=== PATIENT | male | born 1960 | race Two or more races ===

== ENCOUNTER → 2025-09-25 10:47 | Outpatient (BNV) | payer MEDICARE, SELFPAY | PROVIDERS: Visit Provider Internal Medicine | DX: C90.00 Multiple myeloma not having achieved remission (principal); D64.9 Anemia, unspecified; D69.59 Other secondary thrombocytopenia; M89.9 Disorder of bone, unspecified | CPT/HCPCS: 99204; G2211 ==

== ENCOUNTER 2025-10-12 11:56 | Outpatient (REF) | payer MEDICARE, SELFPAY ==
--- NOTE | ~2025-10-12 | XR_ITS ---
EXAMINATION: XR CHEST CLINICAL INFORMATION: left clavicle mass COMPARISON: None available. TECHNIQUE: PA and lateral views. FINDINGS: Pulmonary reticular pattern. No gross consolidation, pleural fissure pneumothorax. Cardiomediastinal silhouette size is normal. Multilevel spondylosis and a shaped curvature of the thoracic spine. Degenerative changes in the shoulders. XR/XR chest 2V IMPRESSION: Chronic interstitial lung disease. Spondylosis and scoliosis, thoracic spine. Electronically signed by: Amaury Zaragoza MD 10/12/2025 12:20 PM [facility]AM[facility] WORLEY
== END 2025-10-12 11:57 | disposition home or self-care (01) ==
LOC: HO.XRAY 11:56
PROVIDERS: Visit Provider Internal Medicine
DX: C90.00 Multiple myeloma not having achieved remission (principal); R22.32 Localized swelling, mass and lump, left upper limb
CPT/HCPCS: 71046

== ENCOUNTER → 2025-10-12 12:03 | Outpatient (BNV) | payer MEDICARE, MEDICAID, SELFPAY | PROVIDERS: Visit Provider Radiology Diagnostic Radiology | DX: J84.9 Interstitial pulmonary disease, unspecified (principal); M47.814 Spondylosis without myelopathy or radiculopathy, thoracic region; M41.84 Other forms of scoliosis, thoracic region | CPT/HCPCS: 71046 ==

== ENCOUNTER 2025-10-24 13:07 | Outpatient (REF) | payer MEDICARE, SELFPAY ==
--- NOTE | ~2025-10-24 | CT_ITS ---
EXAMINATION: CT CHEST WITH IV CONTRAST INDICATION: Lung mass seen previously COMPARISON: Correlation is made with PA and lateral views of the chest dated 10/12/2025. TECHNIQUE: Helical CT scan of the chest was performed following administration of intravenous contrast. Coronal and sagittal reformatted images were generated and reviewed. This CT exam was performed with one or more of the following dose reduction techniques: automated exposure control, adjustment of the mA and/or kV according to patient size, use of iterative reconstruction technique. DLP: 143 mGy-cm CHEST: THYROID: The thyroid is unremarkable. LUNGS: There is a tiny calcified granuloma in the right middle lobe (series 5, image 90). The lungs are otherwise clear. MEDIASTINUM: There is no mediastinal lymphadenopathy. MAHSA: There is no hilar lymphadenopathy. CARDIOVASCULATURE: The heart is mildly enlarged. There is no pericardial effusion. The thoracic aorta is normal in caliber. DEGREE OF CORONARY CALCIFICATION: moderate PLEURA: There is no pleural effusion. No pneumothorax. MAIN AIRWAYS: The mainstem bronchi and proximal branches are patent. AXILLA: There is no axillary lymphadenopathy. BONES AND SOFT TISSUES: The bones are osteopenic. There are healing fractures of the sternum, left clavicular head, and multiple bilateral ribs. UPPER ABDOMEN: The visualized portions of the liver, spleen, and adrenals are unremarkable. CT/CT chest w IV con IMPRESSION: 1. No lung mass is identified. 2. Diffuse osteopenia. Healing fractures of the sternum, left clavicular head, and multiple bilateral ribs. The possibility of multiple myeloma is raised. Clinical correlation and laboratory evaluation is suggested. Electronically signed by: Justin Singh MD 10/24/2025 03:16 PM [facility]
--- OUTSIDE RECORDS SUMMARY | 2025-10-24 13:10 | XMS_ITS | Clinical Summary ---
Author Organization [facility] Address [address] [place] [phone] Phone Care Team Providers Care Mix House Tender Name Role Phone Pcp, Not Required Primary Care Provider Ilene Garcia MD Unavailable [phone] Social History Tobacco Use Types Packs/Day Years Used Date Smoking Tobacco: Never Assessed Education Answer Date Recorded Are you interested in more education? Not on chiquita e 10/16/2025 Are you concerned about learning? Not on file 10/16/2025 No 10/16/2025 No 10/16/2025 Digital Access Answer Date Recorded No 10/16/2025 No 10/16/2025 Reliable internet access at home? Not on file 10/16/2025 Device with a working camera? Not on file Sex and Gender Information Value Date Recorded Sex Assigned at Male 10/15/2025 4:05 PM EST Legal Sex Male 4:01 PM EST Gender Identity Male 10/15/2025 4:05 PM EST Sexual Orientation Straight 10/15/2025 4: 05 PM EST Plan of Treatment Not on file Medical Devices Not on file Insurance [employer] MEDICARE A [facility] A [facility] MEDICARE [facility] A [facility] A MEDICARE A [facility] Care Teams Mix House Tender Relationship Specialty Start Date End Date Pcp, Not Required PCP - General 10/15/25 Ilene Lewis MD [address] [place] [id number] [email or web address] Medicine 10/15/25 Additional Source Comments The information contained in this document represents components of the legal health record. It is not the complete legal health record.[facility]
--- OUTSIDE RECORDS SUMMARY | 2025-10-24 13:10 | XMS_ITS | Clinical Summary ---
Author Organization [facility] Address [address] [place] [address] Phone Care Team Providers Care Wireless Network Engineer Name Role Phone Unavailable Primary Care Provider Unavailabl e Medications acyclovir (ZOVIRAX) 800 mg tablet Take 1 tablet (800 mg total) by mouth 1 (one) time each day. Active amLODIPine (NORVASC) 10 mg tablet Take 1 tablet (10 mg total) by mouth 1 (one) time each day. Active aspirin 81 mg chewable tablet Chew 1 tablet (81 mg total) 1 (one) time each day. Active carvedilol (COREG) 6.25 mg tablet Take 1 tablet (6.25 mg total) by mouth 2 (two) times a day with meals. Active gabapentin (NEURONTIN) 400 mg capsule Take 1 capsule (400 mg total) by mouth 1 (one) time each day. Active lenalidomide (REVLIMID) 25 mg capsule Take 1 capsule (25 mg total) by mouth 1 (one) time each day Take whole with water. Do not break, chew, or open. Active metFORMIN (GLUCOPHAGE) 500 mg tablet Take 1 tablet (500 mg total) by mouth 1 (one) time each day. Active rosuvastatin (CRESTOR) 10 mg tablet Take 1 tablet (10 mg total) by mouth 1 (one) time each day. Active morphine (MSIR) 15 mg tablet Take 1 tablet (15 mg total) by mouth 2 (two) times a day if needed for severe pain. 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 Encounters Date Type Department Care Team Description 10/24/2025 Telephone [facility] Radiation Oncology [address] [place] [phone] Vianca Puentes MA 10/17/2025 Telephone [facility] Radiation Oncology [address] [place] [phone] Vianca Puentes MA from Last 3 Months Social History Tobacco Use Types Packs/Day Years Used Date Smoking Tobacco: Never Assessed Sex and Gender Information Value Date Recorded Sex Assigned at Not on file Legal Sex Male 11:21 AM EST Gender Identity Not on file Sexual Orientation Not on file Plan of Treatment Upcoming Encounters Date Type Department Care Team (Late st Contact Info) Description 10/29/2025 2:00 PM EST Appointment [facility] Radiation Oncology [address] [place] [phone] 10/29/2025 2:30 PM EST Appointment [facility] Radiation Oncology [address] [place] [phone] Thong Canas MD [address] [place] [address] Health Maintenance Due Date Last Done Comments Colorectal Cancer Screening: Colonoscopy 1959 Diabetes: Annual GFR (Glomer ular Filtration Rate) 1959 COVID-19 Vaccine (#1) 1964 Diabetes: Annual Foot Exam 1969 Diabetes: Annual Retina Eye Exam 1969 DTaP,Tdap,and Td Vaccines (1 - Tdap) 1978 Pneumococcal Vaccine: 50+ Ye ars (1 of 2 - PCV) 1978 Zoster Vaccines (1 of 2) 1978 RSV Immunization Adult Patie nts (1 - Risk 50-74 years 1-dose series) 2009 Depression Screening 11/01/2024 Influenza Vaccine (#1) 2025 Abdominal Aortic Aneurysm (A AA) Screen 10/17/2025 Cholesterol Screening (Lipid Panel) 10/17/2025 Falls Risk Assessment 10/17/2025 Hepatitis C Screening 10/17/2025 Social Influencers of Health Screening 10/17/2025 Diabetes: Annual Urine Albumin-Creatinine Ratio (uACR) 10/24/2025 Diabetes: Blood Sugar Contro l Test (HGBA1C) 10/24/2025 Hypertension/CHF/CAD Annual BMP Blood Test 10/24/2025 HIB Vaccines Aged Out No longer eligi ble based on patient's age to complete this topic HPV Vaccines Aged Out No longer eligi ble based on patient's age to complete this topic Hepatitis A Vaccines Aged Out No long er eligible based on patient's age to complete this topic Hepatitis B Vaccines Aged Out No long er eligible based on patient's age to complete this topic IPV Vaccines Aged Out No longer eligi ble based on patient's age to complete this topic MMR Vaccines Aged Out No longer eligi ble based on patient's age to complete this topic Meningococcal ACWY Vaccine Aged Out N o longer eligible based on patient's age to complete this topic Meningococcal B Vaccine Aged Out No l onger eligible based on patient's age to complete this topic RSV Immunization Patients Un derik 20 months Aged Out No longer eligible b ased on patient's age to complete this topic Varicella Vaccines Aged Out No longer eligible based on patient's age to complete this topic Insurance MEDICARE [place] - [place]
--- OUTSIDE RECORDS SUMMARY | 2025-10-24 13:10 | XMS_ITS | Encounter Summary ---
Author Organization [facility] Address [address] [place] [address] Care Team Providers Care Precision Lens Polisher Name Role Phone Unavailable Primary Care Provider Unavailabl e Encounter Details Date Type Department Care Team (Late st Contact Info) Description 10/24/2025 Telephone [facility] Radiation Oncology [address] [place] [phone] Vianca Puentes MA Social History Tobacco Use Types Packs/Day Years Used Date Smoking Tobacco: Never Assessed Sex and Gender Information Value Date Recorded Sex Assigned at Not on file Legal Sex Male 11:21 AM EST Gender Identity Not on file Sexual Orientation Not on file documented as of this encounter Progress Notes * Vianca Puentes MA - 10/24/2025 11:11 AM EST Spoke with pts daughter confirmed consult appt scheduled for 10/29/25 @ 2pm documented in this encounter Plan of Treatment Upcoming Encounters Date Type Department Care Team (Late st Contact Info) Description 10/29/2025 2:00 PM EST Appointment [facility] Radiation Oncology [address] [place] [phone] 10/29/2025 2:30 PM EST Appointment [facility] Radiation Oncology [address] [place] [phone] Thong Canas MD [address] [place] [address] documented as of this encounter Visit Diagnoses Not on filedocumented in this encounter
[2025-10-24] MEDS: iohexoL 350 MG/ML 100 ML INFUS..BTL IV (14:59)
== END 2025-10-24 13:08 | disposition home or self-care (01) ==
LOC: HO.CT 13:07
PROVIDERS: Visit Provider Internal Medicine
DX: C90.00 Multiple myeloma not having achieved remission (principal); R91.8 Other nonspecific abnormal finding of lung field
CPT/HCPCS: 71260; Q9967

== ENCOUNTER → 2025-10-24 13:12 | Outpatient (BNV) | payer MEDICARE, MEDICAID, SELFPAY | PROVIDERS: Visit Provider Radiology Diagnostic Radiology | DX: R91.8 Other nonspecific abnormal finding of lung field (principal) | CPT/HCPCS: 71260 ==